=== PATIENT | female | born 1990 | race Two or more races ===

== ENCOUNTER 2024-03-13 07:27 | Emergency (ER) | payer SELFPAY ==
[2024-03-13 07:48] VITALS: BP 111/69; PULSE 109; RESP 18; TEMP 98.5; BMI 18.8
[2024-03-13] MEDS: SODIUM CHLORIDE 1,000 ML IV STA (08:25)
[2024-03-13 08:31] LABS: BASO % 0.2 % (0-2.0); EOS % 0.2 % (0-4.5); HEMATOCRIT 36.6 % (32.4-45.2); HEMOGLOBIN 12.5 GM/dL (10.7-15.3); LYMPH % 17.6 % (8-40); MCH 31.1 pg (25.7-33.7); MCHC 34.3 g/dl (32.0-36.0); MEAN CELL VOLUME 90.8 fl (80-96); MEAN PLT VOLUME 7.7 fl (7.5-11.1); MONO % 11.7 % (3.8-10.2); NEUT % 70.3 % (42.8-82.8); PLATELET COUNT 282 10^3/uL (134-434); RBC 4.03 M/mm3 (3.60-5.2); RDW 14.5 % (11.6-15.6); WHITE BLOOD COUNT 11.2 K/mm3 (4.0-10.0)
[2024-03-13 08:32] LABS: EPI CELLS >36 /uL (0-25.1); HYALINE CASTS 19 /uL (0-3.1); PH,URINE 5.5 (5.0-8.0); URINE APPEARANCE CLOUDY; URINE BACTERIA 37 /uL (0-1359); URINE BILIRUBIN NEGATIVE (NEGATIVE); URINE COLOR DK YELLOW; URINE GLUCOSE (UA) NEGATIVE (NEGATIVE); URINE KETONE TRACE (NEGATIVE); URINE LEUK ESTERASE NEGATIVE (NEGATIVE); URINE NITRITE NEGATIVE (NEGATIVE); URINE PROTEIN 2+ (NEGATIVE); URINE RBC 36 /uL (0-23.9)
[2024-03-13 08:36] LABS: METHADONE, UR NEGATIVE (NEGATIVE); OPIATES, URI NEGATIVE (NEGATIVE); PHENCYCLIDINE,URINE NEGATIVE (NEGATIVE); URINE BARBITURATES NEGATIVE (NEGATIVE)
[2024-03-13 08:38] LABS: URINE AMPHETAMINES NEGATIVE (NEGATIVE)
[2024-03-13 08:43] LABS: COCAINE, UR POSITIVE (NEGATIVE); URINE BENZODIAZEPINES POSITIVE (NEGATIVE)
[2024-03-13 08:47] LABS: CHLORIDE 106 mmol/L (98-107); POTASSIUM 4.1 mmol/L (3.5-5.1); SODIUM 137 mmol/L (136-145)
[2024-03-13 08:49] LABS: ALBUMIN 3.8 g/dl (3.4-5.0); ANION GAP 4 mmol/L (4-13); BLOOD UREA NITROGEN 13.1 mg/dL (7-18); CALCIUM 8.5 mg/dL (8.5-10.1); CO2 27 mmol/L (21-32); GLUCOSE,RANDOM 89 mg/dL (74-106)
[2024-03-13 08:53] LABS: CREATININE 0.9 mg/dL (0.55-1.3); SGOT/AST 27 U/L (15-37); SGPT/ALT 18 U/L (13-61)
[2024-03-13 08:54] LABS: TOT PROT 7.3 g/dl (6.4-8.2)
[2024-03-13 08:55] LABS: ALK PHOS 193 U/L (45-117); BILIRUBIN,TOTAL 0.5 mg/dL (0.2-1)
[2024-03-13 09:21] LABS: URINE WBC 96.1 /uL (0-25.8)
[2024-03-13 09:22] LABS: URINE CRYSTALS PRESENT /hpf
== END 2024-03-13 11:03 | disposition home or self-care (01) ==
LOC: JER 07:27
PROC: 3E033NZ Introduction of Analgesics, Hypnotics, Sedatives into Peripheral Vein, Percutaneous Approach (ICD-10-PCS; principal; 2024-03-13)
PROC: 3E033GC Introduction of Other Therapeutic Substance into Peripheral Vein, Percutaneous Approach (ICD-10-PCS; 2024-03-13)
PROC: 3E0337Z Introduction of Electrolytic and Water Balance Substance into Peripheral Vein, Percutaneous Approach (ICD-10-PCS; 2024-03-13)
DX: F12.90 Cannabis use, unspecified, uncomplicated (principal); F13.90 Sedative, hypnotic, or anxiolytic use, unspecified, uncomplicated; F14.90 Cocaine use, unspecified, uncomplicated; N93.9 Abnormal uterine and vaginal bleeding, unspecified
CPT/HCPCS: 36415; 80053; 80307; 81003; 84702; 85025; 86850; 86900; 86901; 87086; 99284-25

== ENCOUNTER 2025-02-22 18:31 | Emergency (ER) | payer OTHER ==
[2025-02-22 18:39] VITALS: BP 115/65; PULSE 76; RESP 18; TEMP 99; BMI 18.3
[2025-02-22] MEDS ORDERED: ONDANSETRON 4 MG/2 ML VIAL ONE (20:48)
[2025-02-22] MEDS ORDERED: METOCLOPRAMIDE HCL INJECTION 10 MG/2 ML VIAL ONE (20:48)
[2025-02-22] MEDS ORDERED: ACETAMINOPHEN INJECTION 100 ML ONE (20:48)
[2025-02-22] MEDS: ACETAMINOPHEN 1000 MG/100 ML BAG IVPB ONE (21:00)
[2025-02-22] MEDS: SODIUM CHLORIDE 0.9% 500 ML INFUS.BAG IV ONE (21:00)
[2025-02-22 21:07] LABS: ABSOLUTE IMMATURE GRANULOCYTES 0.05 x10^3/uL (0.0-0.031); BASOPHILS # 0.04 x10^3/uL (0.01-0.08); EOSINOPHIL % 1.4 % (0.7-5.8); EOSINOPHILS # 0.18 x10^3/uL (0.04-0.36); HEMATOCRIT 35.6 % (34.1-44.9); HEMOGLOBIN 11.5 g/dL (11.2-15.7); MCHC 32.3 g/dl (32.2-35.5); MEAN CELL VOLUME 91.3 fl (79.4-94.8); MEAN PLT VOLUME 11.8 fl (9.4-12.3); MONOCYTE # 1.35 x10^3/uL (0.24-0.86); MONOCYTE % 10.8 % (4.7-12.5); PLATELET COUNT 248 x10^3/uL (182-369); RDW 14.3 % (12.1-16.8)
[2025-02-22] MEDS ORDERED: MAGNESIUM SULFATE IN WATER 2 GM/50 ML IVPB IVPB ONE (21:17)
[2025-02-22] MEDS ORDERED: CEFTRIAXONE 1 G/50 ML PREMIX 50 ML IVPB ONE (21:17)
[2025-02-22 21:27] LABS: POTASSIUM 5.2 mmol/L (3.5-5.1)
[2025-02-22 21:28] LABS: INR 1.18 (0.83-1.09)
[2025-02-22] MEDS: MAGNESIUM SULF 50% (8.12 MEQ/2 ML-1 GM VIAL) IVPB ONE (21:28)
[2025-02-22] MEDS: METOCLOPRAMIDE HCL INJECTION 10 MG/2 ML VIAL IVPUSH ONE (21:28)
[2025-02-22 21:29] LABS: BLOOD UREA NITROGEN 12.4 mg/dL (7-18); CALCIUM 9.2 mg/dL (8.5-10.1); MAGNESIUM 2.4 mg/dL (1.8-2.4)
[2025-02-22 21:30] LABS: ACTIVATED PTT 25.8 SECONDS (25.2-36.5)
[2025-02-22 21:32] LABS: CREATININE 0.7 mg/dL (0.55-1.3)
[2025-02-22 21:34] LABS: BILIRUBIN,TOTAL 0.6 mg/dL (0.2-1); TOT PROT 7.4 g/dl (6.4-8.2)
[2025-02-22 23:04] LABS: URINE APPEARANCE CLEAR; URINE BILIRUBIN NEGATIVE (NEGATIVE); URINE COLOR YELLOW; URINE GLUCOSE (UA) NEGATIVE (NEGATIVE); URINE KETONE NEGATIVE (NEGATIVE); URINE LEUK ESTERASE NEGATIVE (NEGATIVE); URINE NITRITE NEGATIVE (NEGATIVE); URINE PROTEIN 1+ (NEGATIVE)
[2025-02-22 23:08] LABS: EPI CELLS 20.4 /uL (0-25.1); HYALINE CASTS 1.75 /uL (0-3.1); URINE BACTERIA 50.6 /uL (0-1359); URINE RBC 41.4 /uL (0-23.9); URINE WBC 26.5 /uL (0-25.8)
[2025-02-22 23:15] LABS: HCV DIAGNOSTIC IN-HOUSE W/RFLX NON-REACTIVE (NONREACTIVE)
[2025-02-22 23:16] LABS: HIV INTERPRETATION NEGATIVE (NEGATIVE)
== END 2025-02-23 00:04 | disposition home or self-care (01) ==
LOC: JER 18:31
DX: J18.9 Pneumonia, unspecified organism (principal); R51.9 Headache, unspecified; W18.30XA Fall on same level, unspecified, initial encounter
CPT/HCPCS: 36415; 70450-TC; 71045-TC-FY; 71260-TC; 72125-TC; 74177-TC; 80053; 81003; 83605; 83735; 84703; 85025; 85610; 85730; 86803; 87040; 87086; 87389; 93005; 93010; 99285-25; J0131; Q9967